=== PATIENT | male | born 1970 | race Hispanic/Latino ===

== ENCOUNTER 2019-04-18 08:19 | Emergency (ER) | payer OTHER ==
[~2019-04-18] VITALS: Ht 172.7 cm; Wt 90.7 kg
--- OUTSIDE RECORDS SUMMARY | 2019-04-18 08:21 | XMS REPORT | Clinical Summary ---
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 Active Problems Not on file Encounters Care Team Description Date Type Specialty Ramon Patrick MD Need for vaccination (Primary Dx); Essential hypertension 12/24/2018 Office Visit Family Practice 12/24/2018 Travel after 04/17/2018 Immunizations Name Administration Dates Next Due Tdap (Tetanus Toxoid, 12/24/2018 (Deferred: Patient Refused) Reduced Diphtheria Toxoid And Acellular Pertussis, Absorbed) Family History Relation Name Status Comments Brother 1 Alive Father Maternal Grandfather Maternal Grandmother Mother Alive Paternal Grandfather Paternal Grandmother Sister 1 Alive Social History Date Tobacco Use Types Packs/Day Years Used Never Smoker Smokeless Tobacco: Never Used Drinks/Week oz/Week Comments Alcohol Use Not Currently Food Insecurity Answer Date Recorded Within the past 12 months, you worried that your Never true 12/24/2018 food would run out before you got money to buy more. Within the past 12 months, the food you bought Never true 12/24/2018 just didn't last and you didn't have money to get more. Sex Assigned at Date Recorded Not on file Industry Job Start Date Occupation Not on file Not on file Not on file Travel End Travel History Travel Start No recent travel history available. Last Filed Vital Signs Reading Time Taken Comments Vital Sign 134/84 12/24/2018 3:05 PM CDT Blood Pressure 100 12/24/2018 3:05 PM CDT Pulse 37.1 C (98.7 F) 12/24/2018 3:05 PM CDT Temperature 18 12/24/2018 3:05 PM CDT Respiratory Rate - - Oxygen Saturation - - Inhaled Oxygen Concentration 86.2 kg (190 lb) 12/24/2018 3:05 PM CDT Weight 172.7 cm (5' 8") 12/24/2018 3:05 PM CDT Height 28.89 12/24/2018 3:05 PM CDT Body Mass Index Plan of Treatment Health Maintenance Due Date Last Done Comments IMM Influenza Seasonal 07/14/2019 Oct to December (>/=19 yrs) Procedures Comments Procedure Name Priority Date/Time Associated Diagnosis POC BMP - IN LAB (STAT) Routine 12/24/2018 4:04 PM CDT after 04/17/2018 Results * BMP POC (12/24/2018 4:04 PM CDT) TCO2 POC 26 21 - 32 mmol/L [facility] Chloride POC 103 98 - 107 mmol/L [facility] Potassium POC 4.1 3.50 - 5.10 mmol/L [facility] Sodium POC 142 136 - 145 mmol/L [facility] Glucose POC 130 (H) 74 - 106 mg/dL [facility] Urea Nitrogen 18 7 - 18 mg/dL [facility] POC Creatinine POC 0.9 0.6 - 1.3 mg/dL [facility] Ionized Calcium 1.09 (L) 1.15 - 1.29 mmol/L [facility] POC GFR, Estimated >60 mL/min/1.73 m2 [facility] GFR, Estim, >60 mL/min/1.73 m2 [facility] Afr-Am Specimen Performing Organization Address City/State/Zipcode Phone Number [facility] after 04/17/2018 Insurance Type Payer Benefit Subscriber ID Effective Phone Address Plan / Dates Group [facility] xxxxxxxxx 2018-P [phone] [id number] [place] [address] [employer] xxxxxxxxxx 2018-P [phone] [address] [place] [address]
--- OUTSIDE RECORDS SUMMARY | 2019-04-18 08:22 | XMS REPORT ---
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 Allergies, Adverse Reactions, Alerts Allergy Name Allergy Type Status Severity Reaction(s) Onset Date Inactive Date Treating Clinician Comments Penicillins DA Active U 2018-12-17 00:00:00 No Known Contrast Allergies DA Active U 2003-07-30 00:00:00 No Known Food Allergies DA Active U 2003-07-30 00:00:00 No Known Other Allergies DA Active U 2003-07-30 00:00:00 PENICILLIN DA Active U 2003-07-30 00:00:00 Medications This patient has no known medications. Encounters Start Date/Time End Date/Time Encounter Type Admission Type Attending Clinicians Care Facility Care Department Encounter ID 2018-12-24 15:46:08 2018-12-24 15:46:08 Outpatient [facility] [id number] 2018-12-24 15:00:57 2018-12-24 15:00:57 Outpatient [facility] [id number] Results Test Description Test Time Test Comments Text Results Atomic Results Result Comments TROPONIN-I 2018-12-17 13:46:00 TROPONIN-I (test code=TROPI) <0.015 ng/mL 0-0.045 BASIC METABOLIC [id number] 13:43:00* Test Item Value Reference Range Comments SODIUM (test code=NA) 139 mmol/L 136-145 POTASSIUM (test code=K) 3.7 mmol/L 3.5-5.1 CHLORIDE (test code=CL) 105.0 mmol/L 98-107 CARBON DIOXIDE (test code=CO2) 25.0 mmol/L 21-32 ANION GAP (test code=GAP) 12.7 10-20 GLUCOSE (test code=GLU) 114 mg/dL 74-106 BLOOD UREA NITROGEN (test code=BUN) 12 mg/dL 7-18 GLOMERULAR FILTRATION RATE (test code=GFR) > 60 mL/min >=60 Estimated GFR by using Modified MDRD formula.Chronic kidney disease is defined as either kidney damageor GFR <60 mL/min/1.73 m2 for >3 months. CREATININE (test code=CREAT) 1.00 mg/dL 0.7-1.3 BUN/CREATININE RATIO (test code=BUN/CREA) 12.0 10-20 CALCIUM (test code=CA) 8.8 mg/dL 8.5-10.1 BASIC METABOLIC [id number] 13:40:00* Test Item Value Reference Range Comments SODIUM (test code=NA) 139 mmol/L 136-145 POTASSIUM (test code=K) 3.7 mmol/L 3.5-5.1 CHLORIDE (test code=CL) 105.0 mmol/L 98-107 CARBON DIOXIDE (test code=CO2) mmol/L 21-32 ANION GAP (test code=GAP) 10-20 GLUCOSE (test code=GLU) mg/dL 74-106 BLOOD UREA NITROGEN (test code=BUN) mg/dL 7-18 GLOMERULAR FILTRATION RATE (test code=GFR) mL/min >=60 CREATININE (test code=CREAT) mg/dL 0.7-1.3 BUN/CREATININE RATIO (test code=BUN/CREA) 10-20 CALCIUM (test code=CA) mg/dL 8.5-10.1 - CT HEAD/BRAIN W/O [id number] 13:37:00 Name: MYA ARTEAGA [facility] : 1970 Age/S: 48 / M [address] [facility] Unit #: [id number] Loc: [place] [place] [address] Phys: Jorge Flores MD Acct: [id number] Dis Date: Status: REG ER PHONE #: [phone] Exam Date: 12/17/2018 1320 FAX #: [phone] Reason: headache dizzy EXAMS: CPT CODE: [id number] CT HEAD/BRAIN W/O CONT 01908 HISTORY: Headache and hypertension. COMPARISON: None available. CT brain without contrast: Automated exposure control. No acute intracranial bleeds or extra-axial collections and there is no acute territorial vascular infarction. The mcginnis-white matter differentiation is preserved. The sulci, gyri, ventricles and subarachnoid spaces and the basilar cisterns are normal for patient's age. No herniation or hydrocephalus or midline shift is noted. Fourth ventricle remains midline. Portions of the visualized paranasal sinuses are unremarkable. No obvious bony calvarial defect is noted. IMPRESSION: No acute intracranial bleeds or extra-axial collections. No acute territorial vascular infarction. No herniation or hydrocepha teddy or midline shift. at 1337 Reported and signed by: Kin Spencer M.D. CC: Jorge Flores MD Technologist:Daily SalinasRT(R),CT CTDI: DLP: Tr nscb Date/Time: 12/17/2018 (7575) [email or web address] Orig Print D/ T: S: 12/17/2018 (1786) CTDI: DLP: PAGE 1 Signed Report CBC W/AUTO [id number] 13:20:00* Test Item Value Reference Range Comments WHITE BLOOD CELL (test code=WBC) 8.5 K/mm3 4.5-12.5 RED BLOOD CELL (test code=RBC) 5.30 mill/mm3 4.0-5.8 HEMOGLOBIN (test code=HGB) 15.9 gram/dL 13.0-17.5 HEMATOCRIT (test code=HCT) 47.8 % 42.0-52.0 MEAN CELL VOLUME (test code=MCV) 90.2 fL 80-98 MEAN CELL HGB (test code=MCH) 30.0 picogram 27.0-33.0 MEAN CELL HGB CONCETRATION (test code=MCHC) 33.3 gram/dL 33.0-36.0 RED CELL DISTRIBUTION WIDTH (test code=RDW) 13.1 % 11.6-16.2 RED CELL DISTRIBUTION WIDTH SD (test code=RDW-SD) 43.0 fL 37.0-51.0 PLATELET COUNT (test code=PLT) 200 K/mm3 150-450 MEAN PLATELET VOLUME (test code=MPV) 10.8 fL 6.7-11.0 NEUTROPHIL % (test code=NT%) 80.9 % 39.0-69.0 IMMATURE GRANULOCYTE % (test code=IG%) 0.4 % 0.0-5.0 LYMPHOCYTE % (test code=LY%) 13.7 % 25.0-55.0 MONOCYTE % (test code=MO%) 4.7 % 0.0-10.0 EOSINOPHIL % (test code=EO%) 0.1 % 0.0-5.0 BASOPHIL % (test code=BA%) 0.2 % 0.0-1.0 NUCLEATED RBC % (test code=NRBC%) 0.0 % 0-0 NEUTROPHIL # (test code=NT#) 6.88 K/mm3 1.8-7.7 IMMATURE GRANULOCYTE # (test code=IG#) 0.03 x10 3/uL 0-0.03 LYMPHOCYTE # (test code=LY#) 1.17 K/mm3 1.0-5.0 MONOCYTE # (test code=MO#) 0.40 K/mm3 0-0.8 EOSINOPHIL # (test code=EO#) 0.01 K/mm3 0.0-0.5 BASOPHIL # (test code=BA#) 0.02 K/mm3 0.0-0.2 NUCLEATED RBC # (test code=NRBC#) 0.00 K/mm3 0.0-0.1 MANUAL DIFF REQUIRED (test code=MDIFF) NO CBC W/AUTO [id number] 13:17:00* Test Item Value Reference Range Comments WHITE BLOOD CELL (test code=WBC) K/mm3 4.5-12.5 RED BLOOD CELL (test code=RBC) mill/mm3 4.0-5.8 HEMOGLOBIN (test code=HGB) 15.9 gram/dL 13.0-17.5 HEMATOCRIT (test code=HCT) 47.8 % 42.0-52.0 MEAN CELL VOLUME (test code=MCV) fL 80-98 MEAN CELL HGB (test code=MCH) picogram 27.0-33.0 MEAN CELL HGB CONCETRATION (test code=MCHC) gram/dL 33.0-36.0 RED CELL DISTRIBUTION WIDTH (test code=RDW) % 11.6-16.2 RED CELL DISTRIBUTION WIDTH SD (test code=RDW-SD) fL 37.0-51.0 PLATELET COUNT (test code=PLT) K/mm3 150-450 MEAN PLATELET VOLUME (test code=MPV) fL 6.7-11.0 NEUTROPHIL % (test code=NT%) % 39.0-69.0 IMMATURE GRANULOCYTE % (test code=IG%) % 0.0-5.0 LYMPHOCYTE % (test code=LY%) % 25.0-55.0 MONOCYTE % (test code=MO%) % 0.0-10.0 EOSINOPHIL % (test code=EO%) % 0.0-5.0 BASOPHIL % (test code=BA%) % 0.0-1.0 NEUTROPHIL # (test code=NT#) K/mm3 1.8-7.7 LYMPHOCYTE # (test code=LY#) K/mm3 1.0-5.0 MONOCYTE # (test code=MO#) K/mm3 0-0.8 EOSINOPHIL # (test code=EO#) K/mm3 0.0-0.5 BASOPHIL # (test code=BA#) K/mm3 0.0-0.2
[2019-04-18 09:01] VITALS: BP 126/85
== END 2019-04-18 09:03 | disposition home or self-care (01) ==
LOC: ER 08:19
DX: H60.311 Diffuse otitis externa, right ear (principal)
CPT/HCPCS: 99282